=== PATIENT | female | born 1960 | race Hispanic/Latino ===

== ENCOUNTER 2017-06-30 15:00 | Emergency (ER) | payer SELFPAY ==
[2017-06-30 15:00] VITALS: BMI 19.8
--- NOTE | 2017-06-30 15:17 | ED PDOC ---
Arrival/HPI - General Chief Complaint: Alcohol Ingestion Time Seen by Provider: 06/30/17 15:03 Historian: Patient, EMS, Other (Nurse) - History of Present Illness Narrative History of Present Illness (Text): 06/30/17 15:14 A 55 year old female, whose past medical history includes hypertension, ETOH abuse, Schizophrenia, and back problems, is brought into the emergency room by EMS for alcohol intoxication. Patient stated she had been drinking 8 beers, 4 shots, and a bottle of Vodka today. Patient stated she was sleeping on [place], when ambulance pick her up. She stated she feels "fine", but she feels hungry. Time/Duration: Other (see hpi) Context: Home Past Medical History - Provider Review Nursing Documentation Reviewed: Yes - Past History Past History: Unable to Obtain - Infectious Disease Hx of Infectious Diseases: None - Tetanus Immunization Tetanus Immunization: Unknown - Past Medical History Past Medical History: No Previous - Cardiac Hx Hypertension: Yes - Pulmonary Hx Respiratory Disorders: No Hx Tuberculosis: No - HEENT Hx HEENT Disorder: No - Renal Hx Renal Disorder: No - Endocrine/Metabolic Hx Endocrine Disorders: No - Hematological/Oncological Hx Blood Disorders: No Hx Cancer: No - Integumentary Hx Dermatological Disorder: No - Musculoskeletal/Rheumatological Hx Musculoskeletal Disorders: No - Gastrointestinal Hx Gastrointestinal Disorders: No - Psychiatric Hx Schizophrenia: Yes Hx Substance Use: Yes - Past Surgical History Past Surgical History: Unable to Obtain - Surgical History Hx Tonsillectomy: No - Anesthesia Hx Anesthesia: No Hx Anesthesia Reactions: No Hx Malignant Hyperthermia: No - Suicidal Assessment Feels Threatened In Home Enviroment: No Family/Social History - Physician Review Nursing Documentation Reviewed: Yes Family/Social History: Other (noncontributory) Smoking Status: Heavy Smoker > 10 Cigarettes Daily Hx Alcohol Use: Yes Hx Substance Use: Yes Substance used: marijuana Hx Substance Use Treatment: No Allergies/Home Meds Allergies/Adverse Reactions: Allergies psych meds Allergy (Uncoded 10/07/16 20:58) RASH Home Medications: Home Meds Medication Instructions Recorded Confirmed Unobtainable 05/16/17 06/30/17 Review of Systems - Review of Systems Systems not reviewed;Unavailable: Intoxicated (but she was able to answer questions) Constitutional: Normal Eyes: Normal ENT: Normal Respiratory: Normal Cardiovascular: Normal Gastrointestinal: Normal Genitourinary Female: Normal Musculoskeletal: Normal Skin: Normal Neurological: Normal Endocrine: Normal Hemo/Lymphatic: Normal Psychiatric: Normal Physical Exam Vital Signs Temp Pulse Resp BP Pulse Ox 07/01/17 01:11 78 15 149/94 H 95 06/30/17 23:54 74 12 130/84 99 06/30/17 21:42 76 15 98/55 L 93 L 06/30/17 19:15 80 15 109/70 97 06/30/17 18:33 102 H 20 123/83 98 06/30/17 18:21 98 F 79 19 124/72 98 06/30/17 16:00 98 F 82 18 114/68 97 Temperature: Afebrile Blood Pressure: Normal Pulse: Regular Respiratory Rate: Normal Appearance: Positive for: Non-Toxic, Comfortable, Unkept Pain Distress: None Mental Status: Positive for: other (alcohol intoxication) - Systems Exam Head: Present: Atraumatic, Normocephalic, Other (no raccon sign. no london signs) Pupils: Present: PERRL, Other (no hyphema) Extroacular Muscles: Present: EOMI. No: Entrapment Conjunctiva: Present: Normal Ears: Present: Normal, Other (no hemotympanum) Mouth: Present: Moist Mucous Membranes Nose (External): Present: Atraumatic Neck: Present: Normal Range of Motion Respiratory/Chest: Present: Clear to Auscultation, Good Air Exchange. No: Respiratory Distress, Accessory Muscle Use, Wheezes, Retracting, Rhonchi, Tender to Palpation Cardiovascular: Present: Regular Rate and Rhythm, Normal S1, S2. No: Murmurs Abdomen: No: Tenderness Back: Present: Normal Inspection Upper Extremity: Present: Normal Inspection, Normal ROM Lower Extremity: Present: Normal Inspection, Normal ROM Neurological: Present: GCS=15, CN II-XII Intact, Speech Normal, Motor Func Grossly Intact, Normal Sensory Function, Normal Cerebellar Funct Skin: Present: Warm, Dry, Normal Color. No: Rashes Psychiatric: Present: Alert, Intoxicated Medical Decision Making ED Course and Treatment: 07/01/17 02:26 Re-evaluation. Patient feels better. Discussed results and plan with patient who expresses understanding. All questions answered and there is agreement with the plan to discharge home with instructions. Patient stable for discharge. Return if symptoms persist or worsen. Patient has sober up. Patient speak in full sentences. She is alert and oriented , and understand plan for d/c home. Patient was recommended to stop drinking alcohol. Re-evaluation Time: 02:47 Reassessment Condition: Re-examined, Improved - Medication Orders Current Medication Orders: Discontinued Medications Lorazepam (Ativan) 2 mg IM ONCE ONE PRN Reason: Protocol Stop: 06/30/17 18:22 Last Admin: 06/30/17 18:32 Dose: 2 mg IM Administration Charges Document 06/30/17 18:32 GMI (Rec: 06/30/17 18:33 GMI [id number]) Injection Site MAR Injection Site Right Deltoid Charges for Administration # of IM Administrations 1 Disposition/Present on Arrival - Present on Arrival Any Indicators Present on Arrival: No History of DVT/PE: No History of Uncontrolled Diabetes: No Urinary Catheter: No History of Decub. Ulcer: No History Surgical Site Infection Following: None - Disposition Have Diagnosis and Disposition been Completed?: Yes Diagnosis: Alcohol intoxication Disposition: HOME/ ROUTINE Disposition Time: 02:47 Patient Plan: Discharge Patient Problems: Current Active Problems Problem Status Onset Alcohol intoxication Acute Condition: IMPROVED Discharge Instructions (ExitCare): Alcohol Intoxication (ED) Additional Instructions: Call private doctor or clinic in 1-2 days. Consider stopping alcohol use. return to emergency if symptoms worsen, tremors, dizziness. Referrals: Rolf Ann, [Primary Care Provider] - Follow up with primary Alcoholics Anonymous [Outside] - Follow up with primary [facility] [Outside] - Follow up with primary [facility] [Outside] - Follow up with primary Forms: [employer] (Armenian)
[2017-06-30 16:01] VITALS: TEMP 98
[2017-07-01 05:30] VITALS: BP 122/82; PULSE 68; RESP 18; O2SAT 98
== END 2017-07-01 07:02 | disposition home or self-care (01) ==
LOC: ED 15:00
DX: F10.129 Alcohol abuse with intoxication, unspecified (principal); F17.210 Nicotine dependence, cigarettes, uncomplicated; I10 Essential (primary) hypertension
CPT/HCPCS: 96372; 99285; J2060

== ENCOUNTER 2017-08-21 00:32 | Emergency (ER) | payer SELFPAY ==
[2017-08-21 00:42] VITALS: BMI 19.3
[2017-08-21 00:43] VITALS: BP 151/95; PULSE 101; TEMP 97.6; O2SAT 98
[2017-08-21 00:45] VITALS: RESP 18
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
--- NOTE | 2017-08-21 08:44 | RAD ---
PROCEDURE: Radiographs of the Left Shoulder HISTORY: injury 3 weeks ago COMPARISON: No prior. FINDINGS: BONES: Normal. No fracture. JOINTS: Normal. Glenohumeral and acromioclavicular joints preserved. No osteoarthritis. SOFT TISSUES: Normal. OTHER FINDINGS: None. IMPRESSION: Normal radiographs of the left shoulder.
== END 2017-08-21 05:59 | disposition home or self-care (01) ==
LOC: ED 00:32
DX: S46.912A Strain of unspecified muscle, fascia and tendon at shoulder and upper arm level, left arm, initial encounter (principal); W51.XXXA Accidental striking against or bumped into by another person, initial encounter; Y92.9 Unspecified place or not applicable; F10.10 Alcohol abuse, uncomplicated; Y90.9 Presence of alcohol in blood, level not specified

== ENCOUNTER 2017-08-26 00:27 | Emergency (ER) | payer SELFPAY ==
[2017-08-26 00:27] VITALS: BMI 19.3
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
== END 2017-08-26 06:00 | disposition home or self-care (01) ==
LOC: ED 00:27
DX: F10.129 Alcohol abuse with intoxication, unspecified (principal); F17.210 Nicotine dependence, cigarettes, uncomplicated; I10 Essential (primary) hypertension; F20.9 Schizophrenia, unspecified